=== PATIENT | female | born 1950 | race African-American/Black ===

== ENCOUNTER 2021-06-01 16:48 | Inpatient (IN) | payer OTHER, MEDICAID ==
[~2021-06-01] VITALS: Ht 170.2 cm; Wt 77.4 kg
[~2021-06-01 16:48] MED LIST: AMLO-489 PO; ATOR20TA50 PO; BENA40TA8 PO; CARV12.544 PO; CETI1CAP OR; CLOP75TA28 PO
[2021-06-01 19:47] LABS: Basophils # (auto) 0 10 ^3/uL (0-0.2); Basophils % (auto) 0.7 % (0.0-2.0); Eosinophils # (auto) 0.2 10 ^3/uL (0-0.8); Eosinophils % (auto) 3.8 % (0.0-7.0); Hemoglobin 13.3 g/dL (12.2-16.2); Lymphocytes # (auto) 2.3 10 ^3/uL (0.4-5.4); Lymphocytes % (auto) 35.5 % (10.0-50.0); Mean Corpuscular Hemoglobin 30.3 pg (28.0-32.0); Mean Corpuscular Hgb Conc. 34.1 g/dL (32.0-36.0); Mean Corpuscular Volume 88.7 fL (80.0-100.0); Monocytes # (auto) 0.7 10 ^3/uL (0-1.3); Monocytes % (auto) 10.1 % (0.0-12.0); Neutrophils # (auto) 3.3 10 ^3/uL (1.6-8.6); Neutrophils % (auto) 49.9 % (37.0-80.0); Nucleated Red Blood Cells % 0.3 %; Red Cell Distribution Width 13.2 % (11.8-14.3); White Blood Cell 6.6 10^3/uL (4.4-10.8)
[2021-06-01 20:07] LABS: Albumin 3.5 g/dL (3.4-5.0); Potassium 3.3 mmol/L (3.5-5.1)
[2021-06-01 20:12] LABS: BUN/Creatinine Ratio 22.6; Bilirubin, Total 0.6 mg/dL (0.2-1.0); Total Protein 7.4 g/dL (6.4-8.2)
[2021-06-01] MEDS ORDERED: POTASSIUM EFFERVESENT TAB 25 MEQ PO ONE (20:45)
[2021-06-01] MEDS ORDERED: MORPHINE SULFATE INJECTION 2 MG/ML SYRG IV PRN (21:00)
[2021-06-01] MEDS ORDERED: ONDANSETRON HCL 4 MG/2 ML VIAL IV PRN (21:00)
[2021-06-01] MEDS ORDERED: NITROGLYCERIN 0.4 MG SL TAB SL PRN (21:00)
[2021-06-01] MEDS ORDERED: ACETAMINOPHEN 325 MG TAB PO PRN (21:00)
[2021-06-01] MEDS ORDERED: cloNIDine HCL 0.1 MG TAB PO PRN (21:00)
[2021-06-01] MEDS: GABAPENTIN 100 MG CAP PO SCH (22:00)
[2021-06-01] MEDS: ATORVASTATIN 20 MG TAB PO SCH (22:00)
[2021-06-02 01:59] VITALS: BP 152/70
[2021-06-02 05:00] VITALS: BP 137/72
[2021-06-02] MEDS: GABAPENTIN 100 MG CAP PO SCH ×3 (05:31→22:43)
[2021-06-02 06:32] LABS: Basophils # (auto) 0 10 ^3/uL (0-0.2); Basophils % (auto) 0.5 % (0.0-2.0); Eosinophils # (auto) 0.2 10 ^3/uL (0-0.8); Eosinophils % (auto) 3.8 % (0.0-7.0); Hematocrit 35.6 % (36.0-46.0); Hemoglobin 12.5 g/dL (12.2-16.2); Lymphocytes # (auto) 2.2 10 ^3/uL (0.4-5.4); Lymphocytes % (auto) 35.1 % (10.0-50.0); Mean Corpuscular Hemoglobin 30.9 pg (28.0-32.0); Mean Corpuscular Hgb Conc. 35.2 g/dL (32.0-36.0); Mean Corpuscular Volume 87.8 fL (80.0-100.0); Monocytes # (auto) 0.6 10 ^3/uL (0-1.3); Monocytes % (auto) 9.7 % (0.0-12.0); Neutrophils # (auto) 3.2 10 ^3/uL (1.6-8.6); Neutrophils % (auto) 50.9 % (37.0-80.0); Red Blood Cells 4.06 10^6/uL (4.0-5.20); Red Cell Distribution Width 13.2 % (11.8-14.3); White Blood Cell 6.4 10^3/uL (4.4-10.8)
[2021-06-02 06:47] LABS: Potassium 3.7 mmol/L (3.5-5.1)
[2021-06-02 06:51] LABS: BUN/Creatinine Ratio 24.7; Calcium 9.2 mg/dL (8.5-10.1)
[2021-06-02 08:56] VITALS: BP 141/72
[2021-06-02] MEDS ORDERED: amLODIPine BESYLATE 5 MG TAB PO SCH ×2 (10:00)
[2021-06-02] MEDS: BENAZEPRIL HCL 10 MG TAB PO SCH (10:00)
[2021-06-02] MEDS ORDERED: PANTOPRAZOLE 40 MG TAB PO SCH (10:00)
[2021-06-02] MEDS: CLOPIDOGREL BISULFATE 75 MG TAB PO SCH (10:45)
[2021-06-02] MEDS: ENOXAPARIN SOD 40 MG/0.4 ML SYRINGE SC SCH (10:46)
[2021-06-02 13:00] VITALS: BP 122/64
[2021-06-02 17:00] VITALS: BP 122/64
[2021-06-02 21:59] VITALS: BP 127/61
[2021-06-02] MEDS: ATORVASTATIN 20 MG TAB PO SCH (22:43)
[2021-06-03 05:00] VITALS: BP 144/83
[2021-06-03] MEDS: GABAPENTIN 100 MG CAP PO SCH ×2 (06:38→14:33)
[2021-06-03 09:00] VITALS: BP 158/78
[2021-06-03] MEDS ORDERED: LOSARTAN POTASSIUM 25 MG TAB PO SCH (10:00)
[2021-06-03] MEDS ORDERED: amLODIPine BESYLATE 5 MG TAB PO SCH (10:00)
[2021-06-03] MEDS: BENAZEPRIL HCL 10 MG TAB PO SCH (10:34)
[2021-06-03] MEDS: CLOPIDOGREL BISULFATE 75 MG TAB PO SCH (10:37)
[2021-06-03] MEDS: ENOXAPARIN SOD 40 MG/0.4 ML SYRINGE SC SCH (10:37)
[2021-06-03 12:16] VITALS: BP 152/81
[2021-06-03 15:44] VITALS: BP 110/67
[2021-06-03 16:17] VITALS: BP 116/67
== END 2021-06-03 18:08 | disposition home health service (06) | DRG 309 ==
LOC: ER 16:48 → TELE 20:54 → TELE-EAST 23:06
PROVIDERS: ADMIT Nurse Practitioner; ATTEND Hospitalist
DX: R00.1 Bradycardia, unspecified (principal); N17.9 Acute kidney failure, unspecified; I16.0 Hypertensive urgency; E87.5 Hyperkalemia; E87.6 Hypokalemia; E78.5 Hyperlipidemia, unspecified; E66.3 Overweight; Z20.822 Contact with and (suspected) exposure to COVID-19; G62.9 Polyneuropathy, unspecified; Z86.73 Personal history of transient ischemic attack (TIA), and cerebral infarction without residual deficits
CPT/HCPCS: 36415; 71045; 80048; 80053; 84484; 85025; 93005; 93306; 96372; 97163; G0378

== ENCOUNTER 2021-11-05 20:25 | Inpatient (IN) | payer OTHER, MEDICAID ==
[~2021-11-05] VITALS: Ht 162.6 cm; Wt 77.8 kg
[~2021-11-05 20:25] MED LIST changes: -CARV12.544 PO
[2021-11-05] MEDS ORDERED: LABETALOL HCL 5 MG/ML 4ML SYRINGE IV ONE (22:15)
[2021-11-05 23:33] LABS: Basophils # (auto) 0 10 ^3/uL (0-0.2); Basophils % (auto) 0.3 % (0.0-2.0); Eosinophils # (auto) 0.1 10 ^3/uL (0-0.8); Eosinophils % (auto) 1.6 % (0.0-7.0); Hemoglobin 13.1 g/dL (12.2-16.2); Lymphocytes % (auto) 32.1 % (10.0-50.0); Mean Corpuscular Hemoglobin 28.6 pg (28.0-32.0); Mean Corpuscular Hgb Conc. 31.9 g/dL (32.0-36.0); Mean Corpuscular Volume 89.7 fL (80.0-100.0); Monocytes # (auto) 0.6 10 ^3/uL (0-1.3); Monocytes % (auto) 8.7 % (0.0-12.0); Neutrophils # (auto) 3.6 10 ^3/uL (1.6-8.6); Neutrophils % (auto) 57.3 % (37.0-80.0); Red Blood Cells 4.57 10^6/uL (4.0-5.20); Red Cell Distribution Width 13.1 % (11.8-14.3); White Blood Cell 6.4 10^3/uL (4.4-10.8)
[2021-11-05 23:56] LABS: Albumin 3.9 g/dL (3.4-5.0); Calcium 9.4 mg/dL (8.5-10.1)
[2021-11-06 00:01] LABS: BUN/Creatinine Ratio 12.6; Total Protein 7.1 g/dL (6.4-8.2)
[2021-11-06] MEDS ORDERED: LABETALOL HCL 5 MG/ML 4ML SYRINGE IV ONE (00:30)
[2021-11-06] MEDS ORDERED: ACETAMINOPHEN 325 MG TAB PO PRN (01:30)
[2021-11-06] MEDS ORDERED: SOD CHL 0.45% 1,000 ML IV SCH (01:30)
[2021-11-06] MEDS ORDERED: HYDROcodone-ACET 5/325MG TAB PO PRN (01:30)
[2021-11-06] MEDS ORDERED: ONDANSETRON HCL 4 MG/2 ML VIAL IV PRN (01:30)
[2021-11-06] MEDS ORDERED: MORPHINE SULFATE INJ 2 MG/ml SYRG IV PRN ×2 (01:30→02:45)
[2021-11-06] MEDS ORDERED: DOCUSATE SOD 100 MG CAP PO PRN (01:30)
[2021-11-06] MEDS: POTASSIUM CHL 20MEQ/100ML 100 ML IV SCH ×2 (02:21→05:26)
[2021-11-06] MEDS ORDERED: NITROGLYCERIN 0.4 MG SL TAB SL PRN (02:45)
[2021-11-06] MEDS: SODIUM CHLOR 0.9% PF (SALINE LOCK) 10ML VIAL/SYR IV SCH ×3 (06:25→21:39)
[2021-11-06 07:25] LABS: Basophils # (auto) 0 10 ^3/uL (0-0.2); Basophils % (auto) 0.5 % (0.0-2.0); Eosinophils # (auto) 0.1 10 ^3/uL (0-0.8); Eosinophils % (auto) 1.6 % (0.0-7.0); Hematocrit 38.8 % (36.0-46.0); Lymphocytes # (auto) 1.8 10 ^3/uL (0.4-5.4); Lymphocytes % (auto) 26.7 % (10.0-50.0); Mean Corpuscular Hemoglobin 30.3 pg (28.0-32.0); Mean Corpuscular Hgb Conc. 33.5 g/dL (32.0-36.0); Mean Corpuscular Volume 90.4 fL (80.0-100.0); Monocytes # (auto) 0.7 10 ^3/uL (0-1.3); Monocytes % (auto) 10.4 % (0.0-12.0); Neutrophils # (auto) 4.2 10 ^3/uL (1.6-8.6); Neutrophils % (auto) 60.8 % (37.0-80.0); Nucleated Red Blood Cells % 0.1 %; Red Blood Cells 4.29 10^6/uL (4.0-5.20); Red Cell Distribution Width 13.1 % (11.8-14.3); White Blood Cell 6.9 10^3/uL (4.4-10.8)
[2021-11-06] MEDS: hydrALAZINE HCL 20 MG/ML VL IV PRN (07:35)
[2021-11-06 07:40] LABS: Albumin 3.6 g/dL (3.4-5.0); Calcium 8.4 mg/dL (8.5-10.1); Potassium 3.9 mmol/L (3.5-5.1)
[2021-11-06 07:42] LABS: Bilirubin, Total 0.9 mg/dL (0.2-1.0); Total Protein 6.8 g/dL (6.4-8.2)
[2021-11-06] MEDS: amLODIPine BESYLATE 5 MG TAB PO SCH (09:40)
[2021-11-06] MEDS: ENOXAPARIN SOD 40 MG/0.4 ML SYRINGE SC SCH (09:42)
[2021-11-06] MEDS ORDERED: METOPROLOL TARTRATE 50 MG TAB PO SCH (10:00)
[2021-11-06] MEDS ORDERED: ATOR40TA52 PO (12:48)
[2021-11-06] MEDS ORDERED: SERT50TA19 PO (12:51)
[2021-11-06] MEDS ORDERED: LOSA-39 PO (12:52)
[2021-11-06] MEDS ORDERED: METH500T22 PO (12:53)
[2021-11-06] MEDS ORDERED: GABA100C9 PO (12:54)
[2021-11-06 12:57] VITALS: BP 138/96
[2021-11-06 13:00] VITALS: BP 146/76
[2021-11-06] MEDS: METOPROLOL TARTRATE 50 MG TAB PO SCH ×2 (14:54→21:10)
[2021-11-06 17:00] VITALS: BP 131/74
[2021-11-06 21:57] VITALS: BP 128/63
[2021-11-06] MEDS ORDERED: ATORVASTATIN 20 MG TAB PO SCH (22:00)
[2021-11-07 05:00] VITALS: BP 156/77
[2021-11-07] MEDS: SODIUM CHLOR 0.9% PF (SALINE LOCK) 10ML VIAL/SYR IV SCH ×2 (06:09→14:00)
[2021-11-07] MEDS: hydrALAZINE HCL 20 MG/ML VL IV PRN (06:28)
[2021-11-07 07:25] LABS: Basophils # (auto) 0 10 ^3/uL (0-0.2); Basophils % (auto) 0.4 % (0.0-2.0); Eosinophils # (auto) 0.1 10 ^3/uL (0-0.8); Eosinophils % (auto) 2.2 % (0.0-7.0); Hematocrit 41.2 % (36.0-46.0); Hemoglobin 13.4 g/dL (12.2-16.2); Lymphocytes # (auto) 1.9 10 ^3/uL (0.4-5.4); Lymphocytes % (auto) 29.7 % (10.0-50.0); Mean Corpuscular Hemoglobin 29.8 pg (28.0-32.0); Mean Corpuscular Hgb Conc. 32.5 g/dL (32.0-36.0); Mean Corpuscular Volume 91.6 fL (80.0-100.0); Monocytes # (auto) 0.6 10 ^3/uL (0-1.3); Monocytes % (auto) 9.4 % (0.0-12.0); Neutrophils # (auto) 3.8 10 ^3/uL (1.6-8.6); Neutrophils % (auto) 58.3 % (37.0-80.0); Nucleated Red Blood Cells % 0.1 %; Red Blood Cells 4.49 10^6/uL (4.0-5.20); Red Cell Distribution Width 13.6 % (11.8-14.3); White Blood Cell 6.5 10^3/uL (4.4-10.8)
[2021-11-07 07:47] LABS: Albumin 3.4 g/dL (3.4-5.0); Calcium 9.2 mg/dL (8.5-10.1)
[2021-11-07 07:51] LABS: BUN/Creatinine Ratio 14.9; Bilirubin, Total 0.6 mg/dL (0.2-1.0); Total Protein 6.8 g/dL (6.4-8.2)
[2021-11-07 09:00] VITALS: BP 125/62
[2021-11-07] MEDS: METOPROLOL TARTRATE 50 MG TAB PO SCH (09:27)
[2021-11-07] MEDS: ENOXAPARIN SOD 40 MG/0.4 ML SYRINGE SC SCH (09:28)
[2021-11-07] MEDS: amLODIPine BESYLATE 5 MG TAB PO SCH (09:28)
[2021-11-07] MEDS ORDERED: NIFE1TAB31 PO (12:05)
[2021-11-07] MEDS ORDERED: MET50T PO (12:05)
[2021-11-07 13:00] VITALS: BP 123/87
[2021-11-07 13:30] VITALS: BP 123/78
[2021-11-08] MEDS ORDERED: NIFEdipine ER 30 MG TAB PO SCH ×2 (10:00)
== END 2021-11-07 15:00 | disposition home or self-care (01) | DRG 305 ==
LOC: ER 20:25 → TELE 11-06 02:40 → TELE-WESTW 11-06 11:54
PROVIDERS: ADMIT Nurse Practitioner Family; ATTEND Nurse Practitioner Family
DX: I16.0 Hypertensive urgency (principal); I69.351 Hemiplegia and hemiparesis following cerebral infarction affecting right dominant side; E78.5 Hyperlipidemia, unspecified; E87.6 Hypokalemia; R51.9 Headache, unspecified; I25.10 Atherosclerotic heart disease of native coronary artery without angina pectoris; I25.2 Old myocardial infarction; Z79.899 Other long term (current) drug therapy; Z83.3 Family history of diabetes mellitus; Z20.822 Contact with and (suspected) exposure to COVID-19; I10 Essential (primary) hypertension
CPT/HCPCS: 36415; 70450; 80053; 85025; 93005; 96361; 96374; G0378; J2405; J3480; J3490